=== PATIENT | female | born 1980 | race Caucasian/White ===

== ENCOUNTER 2017-10-24 09:30 | Emergency (ER) | payer SELFPAY ==
[~2017-10-24] VITALS: Ht 172.7 cm; Wt 134.3 kg
[2017-10-24 09:31] VITALS: BP 174/103
[2017-10-24] MEDS ORDERED: FLUORESCEIN OPHTHALMIC 1 MG STRIP ONE (10:49)
[2017-10-24] MEDS ORDERED: PROPARACAINE OPHTH 0.5%, 15ML ONE (10:49)
[2017-10-24] MEDS ORDERED: FLUORESCEIN OPHTHALMIC 1 MG STRIP EACHEYE ONE (11:00)
[2017-10-24] MEDS ORDERED: PROPARACAINE OPHTH 0.5%, 15ML EACHEYE ONE (11:00)
== END 2017-10-24 11:40 | disposition home or self-care (01) ==
LOC: ED 11:34
DX: H01.004 Unspecified blepharitis left upper eyelid (principal); L21.9 Seborrheic dermatitis, unspecified; I10 Essential (primary) hypertension; M79.7 Fibromyalgia; Z91.19 Patient's noncompliance with other medical treatment and regimen; M06.9 Rheumatoid arthritis, unspecified
CPT/HCPCS: 99281